=== PATIENT | female | born 1995 | race Caucasian/White ===

== ENCOUNTER 2018-07-31 12:50 | Emergency (ER) | payer MEDICAID, OTHER | END 2018-07-31 14:20 | disposition home or self-care (01) | LOC: FTE 12:50 | DX: M54.41 Lumbago with sciatica, right side (principal) | CPT/HCPCS: 99283; Z7502 ==

== ENCOUNTER 2018-10-30 16:29 | Emergency (ER) | payer SELFPAY, MEDICAID | END 2018-10-30 18:08 | disposition home or self-care (01) | LOC: FTE 16:29 | DX: S09.90XA Unspecified injury of head, initial encounter (principal); W22.8XXA Striking against or struck by other objects, initial encounter; Y92.9 Unspecified place or not applicable | CPT/HCPCS: 99282 ==